=== PATIENT | male | born 2000 | race Hispanic/Latino ===

== ENCOUNTER 2023-11-28 09:18 | Emergency (ER) | payer OTHER ==
[~2023-11-28] VITALS: Ht 170.2 cm; Wt 110.7 kg
[2023-11-28] MEDS ORDERED: GABA-1171 PO (09:30)
[2023-11-28] MEDS: ONDANSETRON 4MG 2ML VIAL IV ONE (12:34)
[2023-11-28] MEDS: KETOROLAC 30 MG/ML 1ML VIAL IV ONE (12:34)
[2023-11-28] MEDS: ACETAMINOPHEN TAB 650MG DOSE (2X325MG) PO ONE (12:34)
[2023-11-28 13:07] LABS: HEMATOCRIT 53.4 % (42.0-52.0); HEMOGLOBIN 18.6 g/dl (13.5-17.5); MEAN CORPUSCULAR HEMOGLOBIN 29.7 pg (27.0-33.0); MEAN CORPUSCULAR HGB CONC 34.8 g/dl (32.0-36.5); MEAN CORPUSCULAR VOLUME 85.3 fl (80.0-96.0); PLATELET COUNT, AUTOMATED 280 10^3/uL (150-450); RED BLOOD COUNT 6.26 10^6/uL (4.30-6.10); WHITE BLOOD COUNT 5.7 10^3/uL (4.0-10.0)
[2023-11-28 13:17] LABS: ALBUMIN 4.3 G/DL (3.2-5.2); ALKALINE PHOSPHATASE 74 U/L (46-116); ALT/SGPT 82 U/L (7.0-40); AST/SGOT 43 U/L (<34); BILIRUBIN,DIRECT 0.2 MG/DL (<0.4); BILIRUBIN,TOTAL 0.7 MG/DL (0.3-1.2); BLOOD UREA NITROGEN 11 MG/DL (9-23); CALCIUM LEVEL 9.3 MG/DL (8.5-10.1); CARBON DIOXIDE LEVEL 29 MMOL/L (20-31); CHLORIDE LEVEL 102 MMOL/L (98-107); CREATININE FOR GFR 1.02 MG/DL (0.70-1.30); GLOMERULAR FILTRATION RATE > 60.0 (>60); GLUCOSE, FASTING 85 MG/DL (60-100); POTASSIUM SERUM 4.6 MMOL/L (3.5-5.1); SODIUM LEVEL 138 MMOL/L (136-145); TOTAL PROTEIN 8.1 G/DL (5.7-8.2)
[2023-11-28 13:22] LABS: CPK CREATINE PHOSPHOKINASE 143 U/L (46-171)
[2023-11-28 13:49] VITALS: BP 125/72; TEMP 99.5; O2SAT 96
[2023-11-28 14:06] LABS: ATYPICAL LYMPH 6 % (0-5); LYMPHOCYTES 23 % (16-44); MICROCYTOSIS 1+; MONOCYTES 11 % (0-5); NEUTROPHILS 56 % (28-66); PLASMA CELL 3 % (0-0); PLATELET ESTIMATE NORMAL (NORMAL)
== END 2023-11-28 14:28 | disposition home or self-care (01) ==
LOC: M ED 09:18
DX: R51.9 Headache, unspecified (principal); T42.6X5A Adverse effect of other antiepileptic and sedative-hypnotic drugs, initial encounter; R11.0 Nausea; I45.10 Unspecified right bundle-branch block; Z79.899 Other long term (current) drug therapy
CPT/HCPCS: 80048; 80076; 82550; 85025; 93005; 96374; 99284; J1885; J2405

== ENCOUNTER 2023-12-04 08:55 | Emergency (ER) | payer OTHER ==
[~2023-12-04] VITALS: Ht 170.2 cm; Wt 110.9 kg
[~2023-12-04 08:55] MED LIST: GABA-1171 PO
[2023-12-04] MEDS ORDERED: FEXO60TA98 PO (10:58)
[2023-12-04] MEDS ORDERED: BENA25CA4 PO (10:58)
[2023-12-04] MEDS ORDERED: GABA-1171 PO (10:58)
[2023-12-04] MEDS ORDERED: ACET-683 PO (10:58)
[2023-12-04] MEDS ORDERED: CETI-24 PO (10:58)
[2023-12-04] MEDS ORDERED: HOME MED LIST COMPLETE! XX SCH (11:00)
[2023-12-04] MEDS: dexAMETHasone 20MG/5ML VIAL IV ONE (11:12)
[2023-12-04] MEDS ORDERED: ISOVUE-370 76% 100ML VIAL As Ordered ONE (11:17)
[2023-12-04 11:27] LABS: HEMATOCRIT 54.4 % (42.0-52.0); HEMOGLOBIN 18.2 g/dl (13.5-17.5); MEAN CORPUSCULAR HEMOGLOBIN 28.9 pg (27.0-33.0); MEAN CORPUSCULAR HGB CONC 33.5 g/dl (32.0-36.5); MEAN CORPUSCULAR VOLUME 86.3 fl (80.0-96.0); PLATELET COUNT, AUTOMATED 275 10^3/uL (150-450); WHITE BLOOD COUNT 13.8 10^3/uL (4.0-10.0)
[2023-12-04 12:06] LABS: LYMPHOCYTES 59 % (16-44); MONOCYTES 8 % (0-5); NEUTROPHILS 31 % (28-66)
[2023-12-04 12:08] LABS: PLATELET ESTIMATE NORMAL (NORMAL)
[2023-12-04 13:31] LABS: MONO SCRN POSITIVE (NEGATIVE)
[2023-12-04] MEDS ORDERED: MEDR4PAK PO (13:50)
[2023-12-04 14:40] VITALS: BP 142/86; TEMP 98.6; O2SAT 98
== END 2023-12-04 14:45 | disposition home or self-care (01) ==
LOC: EDBD 08:55 → M ED 08:55
DX: B27.99 Infectious mononucleosis, unspecified with other complication (principal); J03.90 Acute tonsillitis, unspecified; F10.10 Alcohol abuse, uncomplicated; Z88.8 Allergy status to other drugs, medicaments and biological substances; Z79.1 Long term (current) use of non-steroidal anti-inflammatories (NSAID); Z79.899 Other long term (current) drug therapy
CPT/HCPCS: 70491; 80047; 85025; 86308; 87880; 96374; 99284; J1100; Q9967

== ENCOUNTER → 2024-01-18 | Outpatient (CLI) | payer OTHER ==
[~2024-01-18] MED LIST changes: +ACET-683 PO; +BENA25CA4 PO; +CETI-24 PO; +FEXO60TA98 PO; +MEDR4PAK PO
[2024-01-18 17:38] LABS: PLATELET COUNT, AUTOMATED 352 10^3/uL (150-450)
[2024-01-18 17:50] LABS: INR 0.9; PARTIAL THROMBOPLASTIN TIME 26.3 SECONDS (24.8-34.2); PROTHROMBIN TIME 12.5 SECONDS (12.5-14.5)
[2024-01-18 17:54] LABS: COLLAGEN EPINEPHRINE 127 SECONDS (74-162)
== END ==
LOC: M LAB 17:04
PROVIDERS: ATTEND Physician Assistant
DX: Z01.818 Encounter for other preprocedural examination (principal)